=== PATIENT | female | born 1985 | race Caucasian/White ===

== ENCOUNTER 2017-04-26 14:14 | Outpatient (CLI) | payer SELFPAY ==
[2017-04-26 15:11] LABS: BASOPHILS 0 % (0-2); EOSINOPHILS 0.2 % (0-7); HEMATOCRIT 31.2 % (36.0-48.0); HEMOGLOBIN 10.8 g/dL (12-16); IMMATURE GRANULOCYTES 0.4 % (0-5); LYMPHOCYTES 11.1 % (15-50); MCH 32.7 pg (26.0-34.0); MCHC 34.6 g/dL (31.0-37.0); MCV 94.5 fL (80.0-100.0); MEAN PLATELET VOLUME 11.5 fL (7.4-10.4); MONOCYTES 5.7 % (2-11); NEUTROPHILS 82.6 % (40-80); PLATELET COUNT 214 10x3/uL (130-400); RDW 12.7 % (11.5-14.5); WBC 12.5 10x3/uL (4.8-10.8)
[2017-04-26 15:29] LABS: CALC OSMOLALITY 275 mosm/kg (275-300); CALCIUM 8.4 mg/dL (8.5-10.1); CARBON DIOXIDE 19.6 mmol/L (21.0-32.0); CHLORIDE - SERUM 106 mmol/L (98-107); CREATININE - SERUM 0.5 mg/dL (0.6-1.3); GLUCOSE 99 mg/dL (74-106); POTASSIUM - SERUM 3.1 mmol/L (3.5-5.1); SODIUM 139 mmol/L (136-145); UREA NITROGEN 6 mg/dL (7-18); eGFR NON AFRICAN AMERICAN > 90 mL/min (90-120)
[2017-04-26 15:58] LABS: HIV 1 & 2- RAPID SCREEN NEGATIVE (NEGATIVE)
[2017-04-26 16:30] VITALS: BP 133/83; BP 143/100
[2017-04-26 17:00] VITALS: BP 129/77
[2017-04-26 17:30] VITALS: BP 141/83
[2017-04-26 18:32] LABS: APPEARANCE CLEAR (CLEAR); BACTERIA FEW /hpf (NONE SEEN); BILIRUBIN NEGATIVE (NEGATIVE); COLOR DK YELLOW (YELLOW); GLUCOSE NEGATIVE (NEGATIVE); KETONE MODERATE mg/dL (NEGATIVE); LEUKOCYTE ESTERASE TRACE (NEGATIVE); NITRITE NEGATIVE (NEGATIVE); PROTEIN NEGATIVE (NEGATIVE); RED CELLS - URINE 0-5 /hpf (0-5); WHITE CELLS - URINE 0-5 /hpf (0-5)
[2017-04-26 18:33] LABS: AMORPHOUS SEDIMENT <1+ /lpf (NONE SEEN); MUCUS <1+ /lpf (NONE SEEN); UDS - AMPHET POSITIVE QUAL (NEGATIVE); UDS - BARB NEGATIVE QUAL (NEGATIVE); UDS - BENZO NEGATIVE QUAL (NEGATIVE); UDS - COCAINE NEGATIVE QUAL (NEGATIVE); UDS - METH NEGATIVE QUAL (NEGATIVE); UDS - OPIATE NEGATIVE QUAL (NEGATIVE); UDS - PCP NEGATIVE QUAL (NEGATIVE); UDS - THC NEGATIVE QUAL (NEGATIVE)
[2017-04-26 19:30] VITALS: BP 146/81
[2017-04-26] MEDS ORDERED: PRENATAL COMPLE1 TAB PO (19:38)
[2017-04-26] MEDS ORDERED: PRENATAL GUMMIES (19:39)
[2017-04-26 21:30] VITALS: BP 136/79
[2017-04-26 23:02] LABS: HEMATOCRIT 30.1 % (36.0-48.0); HEMOGLOBIN 10.3 g/dL (12-16); MCH 32.7 pg (26.0-34.0); MCHC 34.2 g/dL (31.0-37.0); MCV 95.6 fL (80.0-100.0); MEAN PLATELET VOLUME 11.5 fL (7.4-10.4); RBC 3.15 10x6/uL (4.00-5.40); RDW 12.8 % (11.5-14.5); WBC 14.7 10x3/uL (4.8-10.8)
[2017-04-26 23:30] VITALS: BP 133/79
[2017-04-27 01:30] VITALS: BP 124/75
[2017-04-27 03:30] VITALS: BP 127/76
[2017-04-27 05:30] VITALS: BP 119/72
[2017-04-27 07:25] LABS: RAPID PLASMA REAGIN Non Reactive (Non Reactive)
[2017-04-27 08:57] LABS: HEMATOCRIT 29.7 % (36.0-48.0); MCH 32.4 pg (26.0-34.0); MCHC 33.7 g/dL (31.0-37.0); MCV 96.1 fL (80.0-100.0); MEAN PLATELET VOLUME 11.4 fL (7.4-10.4); RBC 3.09 10x6/uL (4.00-5.40); RDW 12.8 % (11.5-14.5); WBC 15.9 10x3/uL (4.8-10.8)
[2017-04-27 10:18] LABS: HEPATITIS C ANTIBODY <0.1 (0.0-0.9)
== END 2017-04-27 09:55 | disposition home or self-care (01) ==
LOC: D.LDO 14:14 → D.LD 22:31 → D.LDO 04-27 09:55
PROVIDERS: Obstetrics & Gynecology
DX: O46.93 Antepartum hemorrhage, unspecified, third trimester (principal); Z3A.33 33 weeks gestation of pregnancy; O09.33 Supervision of pregnancy with insufficient antenatal care, third trimester; R51 Headache

== ENCOUNTER 2017-05-03 03:04 | Inpatient (IN) | payer SELFPAY ==
[~2017-05-03] VITALS: Ht 167.6 cm; Wt 86.2 kg
[~2017-05-03 03:04] MED LIST: PRENATAL COMPLE1 TAB PO; PRENATAL GUMMIES
[2017-05-03 03:29] LABS: UDS - AMPHET NEGATIVE QUAL (NEGATIVE); UDS - BARB NEGATIVE QUAL (NEGATIVE); UDS - BENZO NEGATIVE QUAL (NEGATIVE); UDS - COCAINE NEGATIVE QUAL (NEGATIVE); UDS - METH NEGATIVE QUAL (NEGATIVE); UDS - OPIATE NEGATIVE QUAL (NEGATIVE); UDS - PCP NEGATIVE QUAL (NEGATIVE); UDS - THC NEGATIVE QUAL (NEGATIVE)
[2017-05-03 03:30] LABS: APPEARANCE HAZY (CLEAR); BILIRUBIN NEGATIVE (NEGATIVE); COLOR YELLOW (YELLOW); GLUCOSE NEGATIVE (NEGATIVE); KETONE NEGATIVE (NEGATIVE); LEUKOCYTE ESTERASE 2+ (NEGATIVE); NITRITE NEGATIVE (NEGATIVE); PROTEIN TRACE mg/dL (NEGATIVE); SPECIFIC GRAVITY 1.005 (1.005-1.020)
[2017-05-03 03:32] LABS: BACTERIA MODERATE /hpf (NONE SEEN); EPITHELIAL CELLS 0-5 /hpf (0-5); MUCUS <1+ /lpf (NONE SEEN); RED CELLS - URINE 0-5 /hpf (0-5)
[2017-05-03 03:57] LABS: HEMATOCRIT 29.8 % (36.0-48.0); MCH 32.4 pg (26.0-34.0); MCHC 33.6 g/dL (31.0-37.0); MCV 96.4 fL (80.0-100.0); MEAN PLATELET VOLUME 11.1 fL (7.4-10.4); RBC 3.09 10x6/uL (4.00-5.40); RDW 12.8 % (11.5-14.5); WBC 13.2 10x3/uL (4.8-10.8)
[2017-05-03 04:09] LABS: CALC OSMOLALITY 275 mosm/kg (275-300); CALCIUM 7.7 mg/dL (8.5-10.1); CARBON DIOXIDE 22.8 mmol/L (21.0-32.0); CHLORIDE - SERUM 105 mmol/L (98-107); CREATININE - SERUM 0.5 mg/dL (0.6-1.3); GLUCOSE 93 mg/dL (74-106); POTASSIUM - SERUM 3.2 mmol/L (3.5-5.1); SODIUM 140 mmol/L (136-145); UREA NITROGEN 3 mg/dL (7-18); URIC ACID 3.9 mg/dL (2.6-7.2); eGFR NON AFRICAN AMERICAN > 90 mL/min (90-120)
[2017-05-03 09:00] VITALS: BP 141/83; Ht 167.6 cm; Wt 86.2 kg
[2017-05-03 09:05] LABS: UDS - AMPHET NEGATIVE QUAL (NEGATIVE); UDS - BARB NEGATIVE QUAL (NEGATIVE); UDS - BENZO NEGATIVE QUAL (NEGATIVE); UDS - COCAINE NEGATIVE QUAL (NEGATIVE); UDS - METH NEGATIVE QUAL (NEGATIVE); UDS - OPIATE NEGATIVE QUAL (NEGATIVE); UDS - PCP NEGATIVE QUAL (NEGATIVE); UDS - THC NEGATIVE QUAL (NEGATIVE)
[2017-05-03 13:38] LABS: HEMATOCRIT 30.2 % (36.0-48.0); HEMOGLOBIN 10.2 g/dL (12-16); MCH 32.3 pg (26.0-34.0); MCHC 33.8 g/dL (31.0-37.0); MCV 95.6 fL (80.0-100.0); MEAN PLATELET VOLUME 10.9 fL (7.4-10.4); RBC 3.16 10x6/uL (4.00-5.40); RDW 12.7 % (11.5-14.5); WBC 13.4 10x3/uL (4.8-10.8)
--- NOTE | 2017-05-04 07:30 | NUR ---
ASSUME CARE OF THIS PATIENT. SITTING UP IN BED EATING BREAKFAST. VISITORS SLEEPING ON COUCHES. WILL COMPLETE SHIFT ASSESSMENT AFTER EATING.
[2017-05-04 07:38] VITALS: BP 142/87
--- NOTE | 2017-05-04 07:38 | NUR ---
UP TO BATHROOM TO VOID, CLEAN PADS AND UNDERWEAR GIVEN. RETURNED TO BED WITHOUT DIFFICULTY. U/2 FIRM MIDLINE. RUBRA SMALL. REQUESTED BUTTER AND JELLY. ASKED ABOUT GOING OUTSIDE. DISCUSSED POLICY PER PHYSICIANS TO REMAIN ON UNIT. VERBALIZED UNDERSTANDING.
--- NOTE | 2017-05-04 07:51 | NUR ---
AMBULATED IN LEAL AND RETURNED TO ROOM.
--- NOTE | 2017-05-04 09:27 | NUR ---
SLEEPING ON RIGHT SIDE. RESPIRATIONS EVEN. IN NURSERY. VISITORS SLEEPING ON COUCH. PT REFUSED NICODERM PATCH EARLIER. SIDE RAILS UP X 2, CALL LIGHT IN REACH. WILL TRANSFER TO CLEAN ROOM WHEN AWAKE.
--- NOTE | 2017-05-04 10:35 | NUR ---
AROUSED FROM SLEEP. SLEEPING IN BED. REMINDED PATIENT OF DANGERS OF SLEEPING WITH IN BED AND HOSPITAL POLICY THAT NEEDS TO BE IN CRIP IF SHE IS GOING TO SLEEP. VERBALIZED UNDERSTANDING. RETURNED TO CRIP. PT UP TO BATHROOM.
--- NOTE | 2017-05-04 10:40 | NUR ---
REQUESTED MOTRIN FOR 3-4/10 CRAMPING. MOTRIN 600 MG GIVEN PO. SIDE RAILS UP CALL LIGHT IN REACH. INFANT IN CRIB RESP EVEN. VISITOR SLEEPING ON COUCH. FRESH WATER, CRACKERS AND PUDDING GIVEN FOR SNACK. NO ADDITIONAL REQUESTS.
--- NOTE | 2017-05-04 11:44 | NUR ---
SITTING UP IN BED . WAITING ON LUNCH. 12/15 CRAMPING. NO REQUESTS AT THIS TIME. SIDE RAILS UP X 2, CALL LIGHT IN REACH.
[2017-05-04 12:19] VITALS: BP 149/88
--- NOTE | 2017-05-04 13:10 | NUR ---
C/O 03/[address] MENDEZ NOTIFIED OF PT C/O CONTINUED AND WORSENDING ABDOMINAL CRAMPING NOT RELIEVED BY MOTRIN. NEW ORDERS RECEIVED. INSTRUCTED PT TO GET UP TO VOID AND ENSURE TO KEEP BLADDER EMPTIED. RAUDEL SAM. VERBALIZED UNDERSTANDING.
--- NOTE | 2017-05-04 13:14 | NUR ---
NORCO 5 MG GIVEN PO FOR RELIEF OF CRAMPING. INFANT RETURNED TO NURSERY WHILE PT REST AND EVALUATION OF INFANT VITAL SIGNS. SIDE RAILS UP X 2, CALL LIGHT IN REACH.
--- NOTE | 2017-05-04 13:44 | NUR ---
PATIENT WAS CONCERNED ABOUT NOT HAVING ELECTRICITY UNTIL THE FIRST OF THE MONTH. LIST OF COMMUNITY RESOURCES GIVEN TO PATIENT THAT SHE MAY BE ABLE TO GET HELP FROM. SAYS THAT HER NEIGHBOR IS GOING TO HELP THEM WITH ELECTRICITY UNTIL SUNDAY.
--- NOTE | 2017-05-04 14:32 | NUR ---
AMBULATING IN LEAL. CRAMPING IS NOW 12/15. DENIES NEEDING ANYTHING.
--- NOTE | 2017-05-04 15:00 | NUR ---
AMBULATED TO 1257. ITEMS GIVEN TO TAKE SHOWER. ORIENTED TO ROOM. TO CALL IF ANYTHING IS NEEDED.
--- NOTE | 2017-05-04 15:07 | NUR ---
Baby's Full Name: Prosper Albarran Mom's Name: Chaya Albarran Address: [address] [place] [address], [place] [id number] Mom is unemployed at this time. She does not want to disclose father of baby. She reports she lives with her 16 year old son, Steven. She reports all utilities are currently working including air-conditioning. She states her water was recently turned off, but her son went & had it turned back on today. She denies having any family other than her son. She states she has 2 indoor dogs. States she smokes cigarettes, but will not do so inside the home now that she has a baby. She denies drugs & ETOH. Previous drug screen was positive, however screen this admission was negative. She reports her home is a safe environment for herself and her children. She states she uses a cab or walks for transportation. She states she has applied for Medicaid and will apply for WIC Sunday - she states she knows where the local [facility] office is located. She also plans to apply for SNAP benefits - she states she was getting them until recently but missed her renewal appointment & benefits were terminated. She states she plans to breast feed. She also states has the basic necessities for the baby including diapers, bottles, some clothing & bedding. She states "I've got some one bringing me a car seat before we go home". She states Dr. Mccoy will be baby's lasting room machine operator. Discussed above with Bee Alcantar RN in nursery - she will make CPS call to report hx of previous + drug screen. Case Management will follow & assist as needed.
--- NOTE | 2017-05-04 17:00 | NUR ---
WENT TO PATIENT ROOM TO CHECK ON HER. IN NURSERY AND PT NOT IN THE IMMEDIATE AREA.
--- NOTE | 2017-05-04 18:09 | NUR ---
PATIENT BACK IN ROOM WITH VISITORS AND INFANT. SAID SHE WENT OUT WALKING IN THE HOSPITAL. REMINDED PATIENT THAT SHE NEEDS TO STAY ON THE UNIT AROUND NURSERY AND L&D. REQUESTED SOMETHING FOR PAIN FOR 6/10 CRAMPING. MOTRIN 600 MG GIVEN PO. EXPLAINED PURPOSE OF CRAMPING/UTERINE CONTRACTIONS IN PREVENTING EXCESSIVE BLEEDING. STATES "I NOTICE I DON'T BLEED MUCH WHEN I'M CRAMPING". ALSO REMINDED TO KEEP BLADDER EMPTIED. TO CALL IF ANYTHING ELSE IS NEEDED. VERBALIZED UNDERSTANDING OF INFORMATION ABOVE. SIDE RAILS UP X 2, CALL LIGHT IN REACH.
--- NOTE | 2017-05-04 19:14 | NUR ---
BEDSIDE REPORT REC'D FROM Rosaline HERNANDEZ RN. PT REC'D SITTING UP IN HIGH FOWLERS POSITION. NBN RN AT BEDSIDE DISCUSSING NBN PAPERWORK. RN INSTRUCTED PT TO CALL USING CL FOR ASSISTANCE WHEN NBN RN COMPLETED DISCUSSION OF NBN PAPERWORK FOR SHIFT ASSESSMENT TO BE COMPLETED. PT VERBALIZED UNDERSTANDING. BED IN LOW POSITION WITH UPPER SIDE RAILS RAISED X2. CL AND PHONE WITHIN REACH. WILL CONT TO MONITOR AND ASSIST PRN.
[2017-05-04 19:49] VITALS: BP 134/84
--- NOTE | 2017-05-04 19:49 | NUR ---
RN TO BEDSIDE, PT LAYING ON RIGHT SIDE IN SEMI FOWLERS POSITION RESTING WITH EYES CLOSED, OPENED EYES WHEN RN ENTERED ROOM. SHIFT ASSESSMENT COMPLETED, VSS. FUNDUS FIRM U2, SMALL AMT RUBRA LOCHIA NOTED TO PERIPAD PAD. PT REPORTS THAT SHE JUST VOIDED ABOUT 10 MINUTES PRIOR TO RN COMING BACK TO ROOM. PERIPAD IN TRASH ALSO WITH SMALL AMT RUBRA LOCHIA, NO CLOTS PRESENT. PAIN 1/10 AT THIS TIME, DENIES NEED FOR INTERVENTION. INSTRUCTED THAT PAIN MED IS PRN MEANING SHE HAD TO ASK FOR IT, VERBALIZED UNDERSTANDING. RESPIRATIONS REGULAR AND UNLABORED, NO S/S OF DISTRESS NOTED, BREATH SOUNDS CLEAR AND EQUAL BILATERALLY. DISPOSABLE PANTIES AND PERIPADS GIVEN. ICE WATER AND ICE CHIPS GIVEN. BED IN LOW POSITION WITH UPPER SIDE RAILS RAISED X2. CL AND PHONE WITHIN REACH.
--- NOTE | 2017-05-04 21:03 | NUR ---
ROUNDS MADE. PT LAYING ON LEFT SIDE RESTING WITH EYES CLOSED. IN CRIB AT BEDSIDE RESTING WITH EYES CLOSED. PT OPENS EYES WITH DOOR OPENING, STATES THAT SHE COULD NOT GET TO WAKE UP TO EAT, REQUESTS THAT BE TAKEN BACK TO NBN. DENIES ADDITIONAL NEEDS AT THIS TIME. CL AND PHONE WITHIN PT REACH. BED IN LOW POSITION WITH UPPER SIDE RAILS RAISED X2. INFANT TO NBN BY RN PER PT REQUEST. SMELL OF CIGARETTE SMOKE NOTED IN PT'S ROOM, REINFORCED SMOKING POLICY WITH PT AND VISITOR WITH UNDERSTANDING VERBALIZED. WILL CONT TO MONITOR AND ASSIST PRN.
--- NOTE | 2017-05-04 22:10 | NUR ---
ROUNDS MADE. PT LAYING ON LEFT SIDE IN SEMI FOWLERS POSITIONS RESTING WITH EYES CLOSED. PT DID NOT OPEN EYES WHEN DOOR OPENED. RESPIRATIONS REGULAR AND UNLABORED. NO S/S OF DISTRESS NOTED. INFANT IN NBN. BED IN LOW POSITION WITH UPPER SIDE RAILS RAISED X2. CL AND PHONE WITHIN REACH. WILL CONT TO MONITOR AND ASSIST PRN.
--- NOTE | 2017-05-05 00:06 | NUR ---
ROUNDS MADE. PT IN HIGH FOWLERS POSITION HOLDING , PREPARING TO BOTTLE FEED. PAIN 4/10, INTERMITTENT ABD CRAMPING. MOTRIN OFFERED, PT STATES THAT SHE WANTS IT FOR CRAMPING, GIVEN PER REQUEST. PT STRUGGLING TO WAKE INFANT FOR FEEDING, RN INSTRUCTED ON UNWRAPPING , DOING A DIAPER CHANGE, AND USE OF WET WIPE ON CHEEK AND FEET TO WAKE TO INFANT. PT USING WET WIPE, AWAKE AND SUCKING ON BOTTLE NIPPLE AT THIS TIME. ROOM TEMP INCREASED AND COLD STRESS EXPLAINED TO PT, VERBALIZED UNDERSTANDING. ICE CHIPS AND WATER GIVEN PER REQUEST. VISITIOR RESTING ON COUCH WITH EYES CLOSED. PT DENIES ADDITIONAL NEEDS. INSTRUCTED TO USE CL FOR ASSISTANCE PRN, VERBALIZED UNDERSTANDING. REINFORCED THAT INFANT HAS 30 MINUTES TO BOTTLE FEED, AND IF ASSISTANCE WAS NEEDED TO CALL RN PRIOR TO 30 MINUTES BEING UP, VERBALIZED UNDERSTANDING. BED IN LOW POSITION WITH UPPER SIDE RAILS RAISED X2. CL AND PHONE WITHIN REACH. WILL CONT TO MONITOR AND ASSIST PRN.
--- NOTE | 2017-05-05 00:53 | NUR ---
PAIN REASSESSMENT COMPLETED. PT UP AMBULATING IN ROOM. PAIN 10/17. STATES THAT SHE JUST VOIDED AND IS HUNGRY. SANDWICH TRAY GIVEN PER REQUESTS. DENIES ADDITIONAL NEEDS. BED REMAINS IN LOW POSITION WITH UPPER SIDE RAILS RAISED X2. CL AND PHONE WITHIN REACH. PT REPORTS THAT SHE WAS UNABLE TO GET TO EAT AND HAD TO HAVE NBN RN TO FEED . WILL CONT TO MONITOR AND ASSIST PRN.
--- NOTE | 2017-05-05 02:10 | NUR ---
ROUNDS MADE. PT RESTING WITH EYES CLOSED LAYING ON STOMACH. RESPIRATIONS REGULAR AND UNLABORED. NO S/S OF DISTRESS NOTED. BED REMAINS IN LOW POSITION WITH UPPER SIDE RAILS RAISED X2. CL AND PHONE WITHIN REACH.
--- NOTE | 2017-05-05 04:13 | NUR ---
ROUNDS MADE. PT LAYING ON RIGHT SIDE RESTING WITH EYES CLOSED. DOESN'T OPEN EYES WITH DOOR OPENING. RESPIRATIONS REGULAR AND UNLABORED. NO S/S OF DISTRESS NOTES. VISITOR REMAINS ON COUCH RESTING WITH EYES CLOSED. IN NBN AT THIS TIME. BED IN LOW POSITION WITH UPPER SIDE RAILS RAISED X2. CL AND PHONE WITHIN REACH. WILL CONT TO MONITOR AND ASSIST PRN.
--- NOTE | 2017-05-05 06:08 | NUR ---
ROUNDS MADE. PT LAYING ON ABD RESTING WITH EYES CLOSED. RESPIRATIONS REGULAR AND UNLABORED, NO S/S OF DISTRESS NOTED. VISITOR REMAINS ON COUCH RESTING WITH EYES CLOSED. BED IN LOW POSITION WITH UPPER SIDE RAILS RAISED X2. CL AND PHONE WITHIN REACH. WILL CONT TO MONITOR AND ASSIST PRN.
--- NOTE | 2017-05-05 07:15 | NUR ---
AMBULATING TO L&D ICE MACHINE AREA WITH VISITOR. NO REQUESTS.
[2017-05-05 07:25] LABS: HEMATOCRIT 29.3 % (36.0-48.0); HEMOGLOBIN 9.9 g/dL (12-16); MCH 32.7 pg (26.0-34.0); MCHC 33.8 g/dL (31.0-37.0); MCV 96.7 fL (80.0-100.0); MEAN PLATELET VOLUME 11.5 fL (7.4-10.4); RBC 3.03 10x6/uL (4.00-5.40); RDW 12.9 % (11.5-14.5); WBC 12.7 10x3/uL (4.8-10.8)
--- NOTE | 2017-05-05 07:45 | NUR ---
SLEEPING ON LEFT SIDE. RESP EVEN. INFANT IN NURSERY. SIDE RAILS UP X 2. WILL COMPLETE SHIFT ASSESSMENT WHEN AWAKE AND PLAN DC TO ROOMING-IN STATUS.
[2017-05-05] MEDS ORDERED: IBUPROFEN600 MG PO (08:43)
[2017-05-05 09:10] VITALS: BP 147/91
--- NOTE | 2017-05-05 10:00 | NUR ---
SITTING UP IN BED. DC TEACHING STARTED. VERBAL AND WRITTEN INFORMATION GIVEN ON TDAP, ROUTINE PP CARE, PP DEPRESSION, BOTTLE AND , BREAST CARE, S&S INFECTION, INFANT CAR SAFETY, COMMUNITY RESOURCES AND MEDICATION ADMINISTRATION. WRITTEN PRESCRIPTION FROM DR SALGADO GIVEN TO PATIENT AND INSTRUCTED TO HAVE SOMEONE [employer] FOR HER. HAS SIGNED ROOMING-IN PAPER WORK. ACCORDING TO NURSERY RN, INFANT WILL REMAIN IN HOSPITAL UNTIL HOME INSPECTION IS COMPLETED PROJECTED FOR SUNDAY. VERBALIZED UNDERSTANDING. DESIRES TDAP.
--- NOTE | 2017-05-05 10:17 | NUR ---
INFANT. C/0 5-6/10 CRAMPING AND REQUESTED PAIN MEDICATION. MOTRIN 600 MG GIVE PO FOR RELIEF. DISCUSSED AND BOTTLE FEEDING IN REGARDS TO LENGTH OF TIME FOR DIGESTION AND DEMANDS FOR EATING. ALSO DISCUSSED SIGNS TO DETERMINE WHEN IS GETTING BREAST MILK AND WHEN IS FINISHED. VERBALIZED UNDERSTANDING. TO CALL IF ANYTHING IS NEEDED.
--- NOTE | 2017-05-05 11:02 | NUR ---
TDAP GIVEN IM RIGHT DELTOID WITHOUT DIFF. DC TEACHING COMPLETED. HAS VERBAL AND WRITTEN INFORMATION, PRESCRIPTIONS. INSTRUCTED SHE WILL BE TRANSFERRED TO ROOMING-IN ROOM WHEN AVAILABLE. TO CHANGE FROM HOSPITAL GOWN TO REGULAR CLOTHES. INSTRUCTED NOT TO BE LEFT IN ROOM ALONE AND SHOULD STAY WITHIN HOSPITAL AREA WHILE ROOMING IN TO CARE FOR INFANT. VERBALIZED UNDERSTANDING.
--- NOTE | 2017-05-05 11:12 | NUR ---
DC'D TO ROOMING IN STATUS.
== END 2017-05-05 11:12 | disposition home or self-care (01) | DRG 775 ==
LOC: D.LDO 03:04 → D.LD 08:36
PROVIDERS: Obstetrics & Gynecology; ADMIT Obstetrics & Gynecology
PROC: 10E0XZZ Delivery of Products of Conception, External Approach (ICD-10-PCS; principal; 2017-05-04)
DX: O60.14X0 Preterm labor third trimester with preterm delivery third trimester, not applicable or unspecified (principal); O99.324 Drug use complicating childbirth; Z3A.35 35 weeks gestation of pregnancy; Z37.0 Single live birth; F15.90 Other stimulant use, unspecified, uncomplicated; O16.4 Unspecified maternal hypertension, complicating childbirth; O99.344 Other mental disorders complicating childbirth; F41.8 Other specified anxiety disorders; O99.334 Smoking (tobacco) complicating childbirth

== ENCOUNTER 2018-08-15 19:52 | Emergency (ER) | payer MEDICAID ==
[~2018-08-15] VITALS: Ht 167.6 cm; Wt 85.9 kg
[~2018-08-15 19:52] MED LIST changes: +ACETAMINOPHEN325 MG; +IBUPROFEN600 MG PO; +NORCO 10-325 TA1 TAB PO; +PRENAVITE1 TAB PO
[2018-08-15 20:03] VITALS: Ht 167.6 cm; Wt 85.9 kg
[2018-08-15] MEDS ORDERED: BP MEDS (20:07)
[2018-08-15 21:55] LABS: BASOPHILS 0.2 % (0-2); EOSINOPHILS 2.5 % (0-7); HEMATOCRIT 35.8 % (36.0-48.0); IMMATURE GRANULOCYTES 0.6 % (0-5); LYMPHOCYTES 26.8 % (15-50); MCH 32.3 pg (26.0-34.0); MCHC 33.5 g/dL (31.0-37.0); MCV 96.5 fL (80.0-100.0); MEAN PLATELET VOLUME 9.3 fL (7.4-10.4); MONOCYTES 7.3 % (2-11); NEUTROPHILS 62.6 % (40-80); PLATELET COUNT 473 10x3/uL (130-400); RBC 3.71 10x6/uL (4.00-5.40); RDW 12.2 % (11.5-14.5); WBC 10.8 10x3/uL (4.8-10.8)
[2018-08-15 21:56] LABS: ALBUMIN 2.9 g/dL (3.4-5.0); ALKALINE PHOSPHATASE 112 U/L (46-116); ALT (SGPT) 24 U/L (10-68); BILIRUBIN - TOTAL 0.09 mg/dL (0.2-1.3); CALC OSMOLALITY 281 mosm/kg (275-300); CALCIUM 8.9 mg/dL (8.5-10.1); CARBON DIOXIDE 22.8 mmol/L (21.0-32.0); CHLORIDE - SERUM 107 mmol/L (98-107); CREATININE - SERUM 0.8 mg/dL (0.6-1.3); GLUCOSE 100 mg/dL (74-106); PROTEIN - SERUM 7.1 g/dL (6.4-8.2); SODIUM 141 mmol/L (136-145); UREA NITROGEN 16 mg/dL (7-18); eGFR NON AFRICAN AMERICAN 87 mL/min (90-120)
[2018-08-16 00:47] VITALS: BP 156/96
== END 2018-08-16 00:47 | disposition home or self-care (01) ==
LOC: D.ER 19:52
PROVIDERS: Family Medicine
DX: O90.2 Hematoma of obstetric wound (principal); I10 Essential (primary) hypertension; K21.9 Gastro-esophageal reflux disease without esophagitis; F17.200 Nicotine dependence, unspecified, uncomplicated